=== PATIENT | female | born 1935 | race Caucasian/White ===

== ENCOUNTER 2017-03-03 00:59 | Inpatient (IN) ==
[2017-03-03] MEDS ORDERED: KETOROLAC 30 MG/1 ML VIAL IM STA (01:27)
[2017-03-03] MEDS ORDERED: ONDANSETRON ODT 4 MG TABLET PO STA (01:27)
[2017-03-03] MEDS ORDERED: ONDANSETRON ODT 4 MG TABLET PO ONE (01:32)
[2017-03-03] MEDS ORDERED: KETOROLAC 30 MG/1 ML VIAL ONE (01:33)
--- NOTE | 2017-03-03 02:04 | Emergency Department Note ---
Darryl José Brittany, am scribing for, and in the presence of, Daniel Garcia MD 01:49. Radha José Charles R, MD, personally performed the services described in this documentation, ascribed by Jackelyn Andrews in my presence, and it is both accurate and complete . Arrival - Arrival Chief Complaint: Extremity Injury Stated Complaint: left arm and back due to falling ED Nursing Triage Note: C/C left wrist and elbow pain, middle to lower back pain secondary to fall. Pt lost balance and fell over. Mode of Arrival: Wheelchair Limitations: No Limitations Source: Patient, Family Time Seen by Provider: 03/03/17 01:17 - History of Present Illness HPI Narrative: This is an 81 y/o white female, who presents to the ED with c/o upper left extremity pain. She states she fell after losing her balance. She reports her left wrist, left hand and left shoulder hurts. She states she did not hit her head. Pt reports she is not on blood thinners. She denies any hip pain but notes back pain. Pt denies any neck pain. Pt has no other complaints/pain in the ED at this time. Pt has a PMHx of HTN, skin cancer, COPD, A-fib, and HTN. Pt has had a appendectomy, cholecytectomy, tubal ligation, and right knee replacement. Pt denies a family medical Hx. Pt denies a social Hx. Onset (ago): hour(s) (1.5 hours ago) Consistency: constant Severity: moderate Allergies/Adverse Reactions: Allergies Allergy/AdvReac Type Severity Reaction Status Date / Time ampicillin Allergy Unknown/Unable Verified 08/29/15 18:31 to obtain Erythromycin Base Allergy Unknown/Unable Verified 08/29/15 18:31 to obtain Sulfa (Sulfonamide Allergy ANAPHYLAXIS Verified 03/03/17 01:08 Antibiotics) Review of System - Review of System 12 point system: reviewed and no additional remarkable complaints except as stated - Review of System Musculoskeletal: Present: arm pain (Left hand pain, Left shoulder pain Left elbow pain ), back pain. Absent: neck pain Medical,Surgical,& Family Hx - Medical History Cardio: History of: Cardiac Dysrhythmia (A-fib), Hypertension Endocrine: History of: Thyroid Disorder (hypo) Respiratory: History of: COPD Musculoskeletal: History of: Musculoskeletal Problems (L wrist fx) Other: History of: Cancer (skin) - Surgical History Cardiac Surgeries: Patient Denies: Cardiac Catheterization Abdominal Surgeries: Surgical HX of: Appendectomy, Cholecystectomy Reproductive Surgeries: Surgical HX of;: Tubal Ligation Patient denies;: Hysterectomy Orthopedic Surgeries: Surgical HX of;: Total Knee Replacement (Right) - Social History Smoking Status: Never smoker Frequency of Alcohol Use: None Type of Drug Use: None Exam Vital Signs: Vital Signs Temperature 98 F 03/03/17 01:02 Pulse Rate 60 03/03/17 01:02 Respiratory Rate 20 03/03/17 01:02 Blood Pressure 143/74 03/03/17 01:02 O2 Sat by Pulse Oximetry 98 03/03/17 01:02 - General General appearance: alert, in no apparent distress - Head Head exam: Present: atraumatic, normocephalic, normal inspection - Eye Eye exam: Present: normal appearance, PERRL, EOMI. Absent: nystagmus, miosis, mydriasis - ENT ENT exam: Present: normal exam, normal oropharynx, mucous membranes moist, TM's normal bilaterally, normal external ear exam - Neck Neck exam: Present: normal inspection, full ROM, trachea midline. Absent: tenderness, meningismus, lymphadenopathy, thyromegaly - Chest Chest inspection: Present: normal inspection, symmetric chest wall rise. Absent : tenderness, rash, abscess - Respiratory Respiratory exam: Present: normal lung sounds bilaterally. Absent: rales, respiratory distress, rhonchi, stridor, wheezes - Cardiovascular Cardiovascular exam: Present: regular rate, normal rhythm, normal heart sounds. Absent: murmur, rubs, gallop - Abdominal Exam Abdominal exam: Present: soft, normal bowel sounds. Absent: distention, tenderness, guarding, rebound, rigidity - Rectal Exam Rectal exam: Present: deferred - Extremities Exam Extremities exam: Present: tenderness (Left hand tenderness), normal capillary refill, other (Hematoma to the left wrist) - Back Exam Back exam: Present: tenderness (Lower neck pain ). Absent: muscle spasm, rashes - Neurological Exam Neurological exam: Present: alert, oriented X3, CN II-XII intact. Absent: motor sensory deficit - Psychiatric Psychiatric exam: Present: anxious. Absent: flat affect, manic - Skin Skin exam: Present: warm, dry, intact, normal color. Absent: rash, cyanosis, diaphoresis, erythema, pallor, mottled (Negaitive Nexus Sx) Course - Consultations Consultation #1: Dr. Aguilera we will see patient in consult for fractured elbow and wrist Time: 03:01 Consultation #2: Dr. Cat will admit patient Time: 03:28 Results - Diagnostic Findings Procedure: CT: image reviewed by me, report reviewed by me (T12 compression fracture), X-ray: image reviewed by me (Left supracondylar fracture, left distal radius fracture) Critical Care Time Critical Care Time: Yes Total Critical Care Time: 60 Disposition Clinical Impression: Mechanical fall, Left supracondylar humerus fracture, Fracture of left distal radius, Acute myofascial strain lumbar spine, UTI (urinary tract infection), T12 vertebral body compression fracture, Traumatic hematoma of left wrist Case discussed with: patient, patient's family Disposition: Still a Patient Condition: Stable Time of Disposition: 03:02
[2017-03-03 02:26] LABS: Barbiturates Screen,Urine Negative (Negative); Benzodiazepines Screen,Urine Negative (Negative); Cannabinoid Screen,Urine Negative (Negative); Opiate Screen,Urine Negative (Negative); Phencyclidine Screen,Urine Negative (Negative)
[2017-03-03 02:28] LABS: Apearance,Urine Slightly Hazy (Clear); Bilirubin,Urine Negative (Negative); Blood, Urine Negative (Negative); Glucose,Urine (UA) Negative (Negative); Hyaline Casts,Urine 4 /LPF (0-3); Ketones,Urine Negative (Negative); Mucus,Urine Occasional /LPF (Occasional); Nitrite,Urine Positive (Negative); Protein,Urine Negative; RBC,Urine 2 /HPF (0-4); Squamous Epithelial Cell,Urine Occasional /HPF (0-10); Urine Color Yellow (Yellow); Urine Specific Gravity 1.014 (1.001-1.035); WBC,Urine 35 /HPF (0-6)
[2017-03-03] MEDS ORDERED: LEVOFLOXACIN INJ 500 MG in PREMIX 1 EACH IV STA (02:52)
[2017-03-03] MEDS ORDERED: LEVOFLOXACIN INJ 100 ML IV ONE (02:57)
[2017-03-03] MEDS ORDERED: ONDANSETRON 4 MG/2 ML VIAL ONE (03:05)
[2017-03-03] MEDS ORDERED: HYDROmorphone 2 MG/1 ML VIAL ONE (03:05)
[2017-03-03] MEDS ORDERED: ONDANSETRON 4 MG/2 ML VIAL IV STA (03:34)
[2017-03-03] MEDS ORDERED: HYDROmorphone 2 MG/1 ML VIAL IV STA (03:34)
[2017-03-03] MEDS ORDERED: diphenhydrAMINE 50 MG/1 ML VIAL IV STA (03:41)
[2017-03-03] MEDS ORDERED: FAMOTIDINE 20 MG/2 ML VIAL IV STA (03:41)
[2017-03-03] MEDS ORDERED: methylPREDNISolone SOD SUC 125 MG/2 ML VIAL IV STA (03:41)
[2017-03-03] MEDS ORDERED: methylPREDNISolone SOD SUC 125 MG/2 ML VIAL ONE (03:42)
[2017-03-03] MEDS ORDERED: diphenhydrAMINE 50 MG/1 ML VIAL ONE (03:42)
[2017-03-03] MEDS ORDERED: FAMOTIDINE 20 MG/2 ML VIAL IV ONE ×2 (03:42→04:40)
[2017-03-03 03:56] LABS: Basophils % 0.3 % (0.0-0.8); Eosinophils # 0.1 10*3/uL (0.0-0.87); Eosinophils % 0.4 % (0.00-10.9); Hematocrit 39.6 VOL% (35.7-47.0); Hemoglobin 13.6 GM/DL (12.0-16.0); Immature Granulocytes % 0.8 %; Immature Granulocytes Absolute 0.12 #; Lymphocytes # 1.4 10*3/uL (1.4-4.0); Lymphocytes % 8.8 % (21.3-54.2); Mean Corpuscular HGB Conc 34.3 GM/DL (32-36); Mean Corpuscular Hemoglobin 33 PG (27-34); Mean Corpuscular Volume 95.9 FL (87-102); Mean Platelet Volume 10.3 FL (9.6-12.0); Monocytes # 0.8 10*3/uL (0.11-0.8); Neutrophils # 13.4 10*3/uL (1.4-7.4); Neutrophils % 84.7 % (38.7-73.9); Platelet Count 154 T/CUMM (130-400); Red Blood Count 4.13 MC/CUMM (3.8-5.5); Red Cell Distribution Width 12.9 % (9.3-17.3); White Blood Count 15.8 T/CUMM (4-12)
[2017-03-03 04:02] LABS: INR 0.9; PT Patient Result 9.9 SECS
[2017-03-03 04:03] LABS: Albumin 3.9 G/DL (3.4-5.0); Bilirubin,Total 0.7 MG/DL (0.2-1.0); Calcium 8.8 MG/DL (8.5-10.1); Osmolality,Calculated 280.7 MOS/KG (273-304); Potassium 3.7 MMOL/L (3.5-5.1); Total Protein 6.3 G/DL (6.4-8.3)
[2017-03-03] MEDS ORDERED: cefTRIAXone 1,000 MG in SODIUM CHLORIDE 0.9% 100 ML IV STA (04:15)
[2017-03-03] MEDS ORDERED: SODIUM CHLORIDE 0.9% 100 ML IV ONE (04:39)
[2017-03-03] MEDS ORDERED: cefTRIAXone 1,000 MG VIAL ONE (04:39)
[2017-03-03 04:58] LABS: Lymphocytes 6 % (20-55); Platelet Estimate Adequate; Segmented Neutrophils 92 % (50-85); Total Cells Counted 100
--- NOTE | 2017-03-03 04:59 | EKG Report ---
Stationary ECG Study [facility] ER Test Date: 03/03/2017 3:08:08 AM Pat Name: DAHLIA FARMER Department: Room: 318 Gender: F Data Communications Analyst: NATALIYA : 1935 Requested by: Daniel Dodson Order Number: [id number] Paul MD: NAVEEN GRACE Intervals [place] Rate: 70 P: 78 OK: 175 QRS: -5 QRSD: 86 T: 10 QT: 343 QTc: 364 Interpretive Statements SINUS RHYTHM INFERIOR MYOCARDIAL INFARCTION, PROBABLY OLD WITH POSTERIOR EXTENSION Electronically Signed On 03-03-17 17:07:52 CDT by NAVEEN GRACE [email or web address]
[2017-03-03] MEDS ORDERED: ACETAMINOPHEN 325 MG TABLET PO PRN (05:01)
[2017-03-03] MEDS ORDERED: LACTULOSE 20 GM/30 ML UDCUP PO PRN (05:01)
[2017-03-03] MEDS: SODIUM CHLORIDE 0.9% 1,000 ML IV SCH ×2 (05:57→21:43)
--- NOTE | 2017-03-03 06:37 | CT Report ---
CT lumbar spine wo con Indication: Lower back pain, fall Comparison: Abdominal CT dated May 02, 2014 Technique: Multiple axial tomographic images of the lumbar spine were obtained without the use of intravenous contrast. Coronal and sagittal reformatted images provided. Findings: There is buckling of the superior portion of the anterior cortex of the T12 vertebral body suspicious for acute fracture with 10% or less loss of vertebral body height. Chronic-appearing bydx-wo-opyyjcxr compression deformity of L3 with prior vertebroplasty change. Moderate levoconvex curvature of the thoracic spine. Multilevel degenerative change of the lumbar spine with multilevel loss of disc space height as well as vacuum disc phenomenon. Posterior facet arthropathy noted throughout the lumbar spine. Multilevel mild diffuse disc bulges. Moderate to severe spinal canal narrowing demonstrated at L2-3, L3-4, and L4-5. Severe neuroforaminal narrowing noted on the right at L1-2 and on the left at L2-3 and L4-5. Tuhl-wt-nqxalejd neuroforaminal narrowing noted at several other locations. Mild multilevel anterior vertebral body osteophyte formation. Diffuse osteopenia. IMPRESSION: There is buckling of the superior portion of the anterior cortex of the T12 vertebral body suspicious for acute fracture with 10% or less loss of vertebral body height. Chronic mckj-wg-hvqhqpkk compression deformity of L3 with vertebroplasty change. Multilevel degenerative change and levoconvex curvature of the lumbar spine with spinal canal and neuroforaminal narrowing as detailed above. Diffuse osteopenia and other detailed findings as above. Preliminary report was issued by [facility]. The CT exam was performed using one or more of the following dose reduction techniques: Automated exposure control, adjustment of the mA and/or kV according to patient size, or use of iterative reconstruction technique. PROCEDURE INTERPRETED AT [facility] DEPARTMENT OF RADIOLOGY Final Report Signed by: Dr German Bobby
--- NOTE | 2017-03-03 06:59 | XRay Report ---
XR wrist 3V LT Indication: Fall, pain Comparison: Left wrist x-ray dated August 29, 2015 Technique: Frontal, lateral, and oblique views of the left wrist Findings: Diffuse osteopenia. Mild buckle type fracture involving the distal radial metaphysis which appears acute. Nondisplaced acute radial styloid fracture with articular extension. Question minimal acute chip fracture of the ulnar styloid. Old mild deformity of the distal ulnar diametaphysis. Surrounding soft tissue swelling noted. IMPRESSION: As above. PROCEDURE INTERPRETED AT [facility] DEPARTMENT OF RADIOLOGY Final Report Signed by: Dr German Bobby
--- NOTE | 2017-03-03 07:12 | XRay Report ---
XR humerus LT, XR elbow 2V LT Indication: Fall, pain Comparison: None Technique: Frontal and lateral views of the left humerus. Frontal and lateral views of the left elbow. Findings: Acute, mildly displaced supracondylar fracture of the distal humerus. Wrist described in a separate dictation. IMPRESSION: As above. PROCEDURE INTERPRETED AT [facility] DEPARTMENT OF RADIOLOGY Final Report Signed by: Dr German Bobby
--- NOTE | 2017-03-03 07:14 | XRay Report ---
XR pelvis AP 1 or 2 Views Indication: Pelvic pain Comparison: Right hip x-ray dated October 15, 2010 Technique: Single frontal view of the pelvis Findings: Diffuse osteopenia. No definite acute fracture or dislocation demonstrated. Bowel obscures visualization, most significantly of the sacrum. Vertebroplasty change of L3. Surgical clips project over the pelvis. IMPRESSION: As above. PROCEDURE INTERPRETED AT [facility] DEPARTMENT OF RADIOLOGY Final Report Signed by: Dr German Bobby
--- NOTE | 2017-03-03 07:22 | XRay Report ---
Referring Physician: Daniel Garcia Exam: XR chest 1V portable Date: March 03, 2017 at 2:17 AM Reason: Shortness of breath Comparison: Bilateral rib x-rays with chest view August 29, 2015 Findings: There is borderline cardiomegaly. No focal consolidation, pneumothorax or pleural effusion is identified. No acute osseous process is seen. However, please see the recent CT of the lumbar spine for further details. Surgical clips are noted within the right upper abdomen. Impression: 1. Borderline cardiomegaly. 2. No acute pulmonary process is identified. PROCEDURE INTERPRETED AT [facility] DEPARTMENT OF RADIOLOGY Final Report Signed by: Dr. Bi Alejo
--- NOTE | 2017-03-03 07:28 | EKG Report ---
Stationary ECG Study [facility] Test Date: 03/03/2017 7:28:10 AM Pat Name: DAHLIA FARMER Department: Room: 318 Gender: F Medical Doctor Nuclear Medicine: LAINEY : 1935 Requested by: Daniel Dodson Order Number: [id number] Reading MD: NAVEEN GRACE Intervals [place] Rate: 73 P: 34 PA: 157 QRS: -12 QRSD: 90 T: -2 QT: 334 QTc: 359 Interpretive Statements SINUS RHYTHM MODERATE VOLTAGE CRITERIA FOR LVH, CONSIDER NORMAL VARIANT NONSPECIFIC T-WAVE ABNORMALITY Electronically Signed On 03-03-17 17:09:11 CDT by NAVEEN GRACE [email or web address]
--- NOTE | 2017-03-03 08:04 | Orthopedic Consult Note ---
History of Present Illness Chief complaint: Left arm pain History of present illness: Ms. Saalzar is a 81 year old female who had a fall yesterday evening. She states that she is unsteady with her gait due to some severe underlying knee arthritis and was ambulating without any assistive devices when she had a fall onto her left upper extremity. She had significant pain is brought here to the emergency department for evaluation. Upon workup she was noted to have a distal radius and a distal humerus fracture. She was splinted and admitted for further care. She is right-hand dominant She will complains of pain in the left upper extremity. Allergies Allergy/AdvReac Type Severity Reaction Status Date / Time Iodinated Contrast Media - Allergy Unknown Verified 03/03/17 07:01 Oral and ampicillin Allergy Unknown/Unable Verified 08/29/15 18:31 to obtain Erythromycin Base Allergy Unknown/Unable Verified 08/29/15 18:31 to obtain levofloxacin [From Levaquin] Allergy ITCHING Verified 03/03/17 07:01 Sulfa (Sulfonamide Allergy ANAPHYLAXIS Verified 03/03/17 01:08 Antibiotics) 12 point system: reviewed and no additional remarkable complaints except as stated Medical,Surgical,& Family Hx - Medical History Cardio: History of: Cardiac Dysrhythmia (A-fib), Hypertension Comment Only: Cardiovascular Problems (Pt states she is hypotensive) Endocrine: History of: Thyroid Disorder (hypo) Respiratory: History of: Asthma No history of: COPD, Obstructive Sleep Apnea Musculoskeletal: History of: Musculoskeletal Problems (L wrist fx) Other: History of: Cancer (skin) - Surgical History Cardiac Surgeries: Patient Denies: Cardiac Catheterization Neurologic Surgeries: Patient denies: Neurologic Surgery Abdominal Surgeries: Surgical HX of: Appendectomy, Cholecystectomy Reproductive Surgeries: Surgical HX of;: Tubal Ligation Patient denies;: Hysterectomy Orthopedic Surgeries: Surgical HX of;: Total Knee Replacement (Right) - Social History Smoking Status: Never smoker Frequency of Alcohol Use: None Type of Drug Use: None Exam - Constitutional Vitals: Period Temp Pulse Resp BP Sys/Sanches Pulse Ox Last 24 Hr 97.3 F-98.9 F 60-69 16-20 93-143/47-78 94-100 Exam: Left upper extremity: Splint is in place. She can flex and extend her fingers and thumb. She is sensate in the digits. She has brisk capillary refill. Results - Labs CBC & BMP: 03/03/17 03:29 03/03/17 03:29 - Diagnostic Findings Procedure: X-ray: image reviewed by me (Wrist x-ray showed minimally displaced fractures of the metaphyseal portion of the distal radius. Elbow and humerus radiographs show a transverse fracture through the supracondylar region of the distal humerus.) Assessment and Plan (1) Left supracondylar humerus fracture Status: Acute Assessment and plan: Discussed the distal humerus fracture with she and her daughter and her great detail. Due to the risk of displacement and subsequent decrease in elbow function, recommended open reduction internal fixation of the fracture. Risks and benefits were discussed in great detail. Risks, alternatives, and benefits to undergoing this procedure were discussed in great detail, the patient voiced understanding desire proceed. Risks discussed included, but were not limited to, bleeding, infection, damage to arteries and nerves, nonunion, malunion, need for revision surgery, as well as medical complications. She has quite anxious about the prospects of surgery and undergoing anesthesia with her pulmonary history in particular. I discussed this at length with she and her daughter. She will give surgery some consideration, will discuss this with her again after she has had time to talk with her family. Current Visit: Yes Qualifiers: Encounter type: initial encounter Fracture type: closed Qualified Code(s) : S42.412A - Displaced simple supracondylar fracture without intercondylar fracture of left humerus, initial encounter for closed fracture
--- NOTE | 2017-03-03 08:06 | Family Practice History&Phys ---
Assessment and Plan (1) Left supracondylar humerus fracture Status: Acute Assessment and plan: Patient being evaluated by orthopedics and should have surgery today. Patient has no medical problems that would prohibit surgery she should tolerate well Current Visit: Yes Qualifiers: Encounter type: initial encounter Fracture type: closed Qualified Code(s) : S42.412A - Displaced simple supracondylar fracture without intercondylar fracture of left humerus, initial encounter for closed fracture (2) Fracture of left distal radius Status: Acute Assessment and plan: Patient is being evaluated by orthopedics and will probably have surgery today. Patient should tolerate surgery well. Current Visit: Yes (3) Compression fracture at T12 Status: Acute Assessment and plan: We will consult Dr. Rosa who has seen patient for compression fractures in the past Current Visit: Yes (4) UTI (urinary tract infection) Status: Acute Assessment and plan: Have obtained cultures and started on IV Rocephin. Current Visit: Yes (5) Paroxysmal atrial fibrillation Status: Chronic Assessment and plan: Stable at present Current Visit: Yes (6) Asthma Status: Chronic Assessment and plan: Stable at present we will order respiratory treatments Current Visit: Yes (7) Chronic obstructive pulmonary disease Status: Chronic Assessment and plan: Stable at present we will order respiratory treatments Current Visit: Yes (8) Hypertension Status: Chronic Assessment and plan: Stable on present medications Current Visit: Yes History of Present Illness Chief complaint: Fracture distal humerus and radius on the right side History of present illness: Ms. Salazar is a 81 year old female Patient well-known to me who fell at home and injured her left arm and back. Patient is complaining of severe pain in her left shoulder arm and lower back on admission. Seen in emergency room and noted to have a fracture of the distal humerus with a partial distal radial radial fracture and fracture of the styloid process. These are nondisplaced. Patient is also noted to have a probable acute compression fracture T12. She has had previous compression fractures with kyphoplasty plastic in the past. Denies other areas of injury. View of history is being admitted for probable surgery and further evaluation Allergies Allergy/AdvReac Type Severity Reaction Status Date / Time Iodinated Contrast Media - Allergy Unknown Verified 03/03/17 07:01 Oral and ampicillin Allergy Unknown/Unable Verified 08/29/15 18:31 to obtain Erythromycin Base Allergy Unknown/Unable Verified 08/29/15 18:31 to obtain levofloxacin [From Levaquin] Allergy ITCHING Verified 03/03/17 07:01 Sulfa (Sulfonamide Allergy ANAPHYLAXIS Verified 03/03/17 01:08 Antibiotics) Medical,Surgical,& Family Hx - Medical History Cardio: History of: Cardiac Dysrhythmia (A-fib), Hypertension Comment Only: Cardiovascular Problems (Pt states she is hypotensive) Psychological: History of: Anxiety Disorders Endocrine: History of: Thyroid Disorder (hypo) Respiratory: History of: Asthma No history of: COPD, Obstructive Sleep Apnea Musculoskeletal: History of: Musculoskeletal Problems (L wrist fx) Other: History of: Cancer (skin) - Surgical History Cardiac Surgeries: Patient Denies: Cardiac Catheterization Neurologic Surgeries: Patient denies: Neurologic Surgery Abdominal Surgeries: Surgical HX of: Appendectomy, Cholecystectomy Reproductive Surgeries: Surgical HX of;: Tubal Ligation Patient denies;: Hysterectomy Orthopedic Surgeries: Surgical HX of;: Total Knee Replacement (Right) - Family History Family History: Reports;: Family Heart Disease, Family Hypertension - Social History Smoking Status: Never smoker Frequency of Alcohol Use: None Type of Drug Use: None Marital Status: Lives With:: Spouse Functional capacity: independent ambulation Exam - Constitutional Vitals: Period Temp Pulse Resp BP Sys/Sanches Pulse Ox Last 24 Hr 97.3 F-98.9 F 60-69 16-20 93-143/47-78 94-100 General appearance: mild distress - Head Head exam: Present: normal inspection - ENT ENT exam: Present: normal exam - Neck Neck exam: Present: normal inspection - Respiratory Respiratory exam: Present: clear to auscultation bilaterally - Cardiovascular Cardiovascular exam: Present: regular rate and rhythm - GI/Abdominal GI/Abdominal exam: Present: normal bowel sounds, soft - Extremities Exam Extremities exam: Present: other (Patient has diffuse tenderness over the lower thoracic region of spine. She is in a splint on the left arm secondary to fractures) - Back Exam Back exam: Present: muscle spasm, other (Patient has a probable acute compression fracture T12) - Neurological Exam Neurological exam: Present: alert - Psychiatric Psychiatric exam: Present: normal affect - Skin Skin exam: Present: normal color Results - Labs CBC & BMP: 03/03/17 03:29 03/03/17 03:29
[2017-03-03] MEDS ORDERED: CLINDAMYCIN INJ 900 MG in PREMIX 1 EACH IV ONE (08:30)
[2017-03-03] MEDS: PANTOPRAZOLE 40 MG VIAL IV SCH (10:17)
[2017-03-03] MEDS ORDERED: ROPIVACAINE 0.5% 30 ML VIAL ONE (10:18)
[2017-03-03] MEDS: ALBUTEROL/IPRATROPIUM 3 ML NEB RESP TX SCH ×5 (11:10→23:00)
[2017-03-03] MEDS ORDERED: fentaNYL 100 MCG/2 ML VIAL ONE ×2 (12:07→15:29)
[2017-03-03] MEDS ORDERED: MIDAZOLAM 2 MG/2 ML VIAL ONE (12:07)
--- NOTE | 2017-03-03 12:43 | Pain Management Consult Note ---
Assessment and Plan (1) Thoracic compression fracture Problem details: CT scan demonstrates T 12 compression fracture with superior endplate collapse approximately 10%. Compared to MRI of last year if this was not present. Status: Acute Assessment and plan: The patient is very pleasant 81-year-old female known to me. She has an acute compression fracture of T12 that was not present on the MRI of last year. This was likely sustained in the fall yesterday. She also has L4 fracture on her CT scan with superior endplate collapse of approximately 20%. Today she is undergone ORIF of the left arm. I discussed the possibility of kyphoplasty of T12 and even L4, and she is interested in this possibility if she still has severe pain. We will plan to see her in the clinic Wednesday or Wednesday in follow- up and discuss kyphoplasty at that time. This can be done as an outpatient and unless she cannot mobilize we will plan to see her as outpatient. Dr. Salazar will be available over the next several days if she is unable to mobilize and go home. Please note that she has had a previous L3 fracture. We will plan to have prescriptions available at our office for her to filler picker tomorrow on her way home to help manage her pain. Current Visit: Yes History of Present Illness Chief complaint: Back pain History of present illness: Ms. Salazar is a 81 year old female who fell at home and injured her left arm with fracture. She also injured her back. The back pain was doing reasonably well until the fall. She has had severe pain since the fall and it is much more uncomfortable trying to move change position but the pain is constant, throbbing aching stabbing discomfort. Home Medications Medication Instructions Recorded Confirmed Type Amlodipine Besylate [Amlodipine 5 mg PO DAILY 03/03/17 03/03/17 History Besylate] Gemfibrozil [Gemfibrozil] 600 mg PO BID 03/03/17 03/03/17 History Indapamide [Indapamide] 2.5 mg PO BID 03/03/17 03/03/17 History Levothyroxine Tab [Synthroid Tab] 125 mcg PO DAILY@0700 03/03/17 03/03/17 History Metoprolol Tartrate [Metoprolol 50 mg PO DAILY 03/03/17 03/03/17 History Tartrate] Potassium Chloride [Klor-Con M20] 20 meq PO DAILY 03/03/17 03/03/17 History Allergies Allergy/AdvReac Type Severity Reaction Status Date / Time Iodinated Contrast Media - Allergy Unknown Verified 03/03/17 07:01 Oral and ampicillin Allergy Unknown/Unable Verified 08/29/15 18:31 to obtain Erythromycin Base Allergy Unknown/Unable Verified 08/29/15 18:31 to obtain levofloxacin [From Levaquin] Allergy ITCHING Verified 03/03/17 07:01 Sulfa (Sulfonamide Allergy ANAPHYLAXIS Verified 03/03/17 01:08 Antibiotics) Medical,Surgical,& Family Hx - Medical History Cardio: History of: Cardiac Dysrhythmia (A-fib), Hypertension Comment Only: Cardiovascular Problems (Pt states she is hypotensive) Psychological: History of: Anxiety Disorders Endocrine: History of: Thyroid Disorder (hypo) Respiratory: History of: Asthma No history of: COPD, Obstructive Sleep Apnea Musculoskeletal: History of: Musculoskeletal Problems (L wrist fx) Other: History of: Cancer (skin) - Surgical History Cardiac Surgeries: Patient Denies: Cardiac Catheterization Neurologic Surgeries: Patient denies: Neurologic Surgery Abdominal Surgeries: Surgical HX of: Appendectomy, Cholecystectomy Reproductive Surgeries: Surgical HX of;: Tubal Ligation Patient denies;: Hysterectomy Orthopedic Surgeries: Surgical HX of;: Total Knee Replacement (Right) - Family History Family History: Reports;: Family Heart Disease, Family Hypertension - Social History Smoking Status: Never smoker Frequency of Alcohol Use: None Type of Drug Use: None - Constitutional Constitutional: Present: fatigue - Cardiovascular Cardiovascular: Present: dyspnea on exertion - Gastrointestinal Gastrointestinal: Present: constipation - Musculoskeletal Musculoskeletal: Present: arthralgias, back pain, joint swelling - Neurological Neurological: Present: numbness, paresthesias Exam - Constitutional Vitals: Period Temp Pulse Resp BP Sys/Sanches Pulse Ox Last 24 Hr 97.3 F-98.9 F 60-72 16-20 93-143/47-78 94-100 General appearance: mild distress, over weight - Head Head exam: Present: normocephalic - Eye Eye exam: Present: EOMI - Respiratory Respiratory exam: Present: clear to auscultation bilaterally - Cardiovascular Cardiovascular exam: Present: RRR - GI/Abdominal GI/Abdominal exam: Present: normal bowel sounds - Back Exam Back exam: Present: vertebral tenderness - Neurological Exam Neurological exam: Present: CN II-XII intact, motor sensory deficit (Feet) - Skin Skin exam: Present: normal color, warm Results - Labs CBC & BMP: 03/03/17 03:29 03/03/17 03:29
[2017-03-03] MEDS ORDERED: LIDOCAINE 100 MG/5 ML SYRINGE ONE (12:57)
[2017-03-03] MEDS ORDERED: SUCCINYLCHOLINE 200 MG/10 ML VIAL ONE (12:57)
[2017-03-03] MEDS ORDERED: PROPOFOL 200 MG/20 ML VIAL IV ONE (12:57)
[2017-03-03] MEDS ORDERED: SEVOFLURANE 1 UNIT/15 MINUTE INH ONE (15:29)
--- NOTE | 2017-03-03 15:29 | Anesthesia Post-Op ---
Anesthesia Post OP - Post Ansesthetic Evaluation Patient seen in post op: Yes Resp: within normal limits CV: within normal limits Mental: within normal limits Temp: within normal limits [id number]: within normal limits Nausea and Vomiting: within normal limits Pain: within normal limits
--- NOTE | 2017-03-03 17:11 | XRay Report ---
XR elbow 2V LT Clinical Information: ORIF LT DISTAL HUMERUS Intraoperative fluoroscopy Attending physician: Ale Total fluoroscopy time: 27 seconds Findings: Intraoperative fluoroscopic images demonstrate plate and screw hardware about the distal humerus. The fracture fragments appear in improved alignment. Images were evaluated by the attending surgeon at the time of the procedure. Impression: Intraoperative fluoroscopy as detailed above. PROCEDURE INTERPRETED AT [facility] DEPARTMENT OF RADIOLOGY Final Report Signed by: Jose Leonard
[2017-03-03] MEDS: DOCUSATE SODIUM 100 MG CAPSULE PO SCH ×2 (17:56→21:40)
[2017-03-03] MEDS: ACETAMINOPHEN 500 MG TABLET PO SCH (20:08)
[2017-03-03] MEDS: CLINDAMYCIN INJ 900 MG in PREMIX 1 EACH IV SCH (21:40)
[2017-03-04] MEDS: ACETAMINOPHEN 500 MG TABLET PO SCH ×3 (00:07→12:47)
[2017-03-04] MEDS: HYDROmorphone 2 MG/1 ML VIAL IV PRN (00:08)
[2017-03-04] MEDS: ALBUTEROL/IPRATROPIUM 3 ML NEB RESP TX SCH ×6 (03:00→23:24)
[2017-03-04] MEDS: CLINDAMYCIN INJ 900 MG in PREMIX 1 EACH IV SCH (04:14)
[2017-03-04] MEDS: cefTRIAXone 1,000 MG in SODIUM CHLORIDE 0.9% 100 ML IV SCH (05:44)
--- NOTE | 2017-03-04 07:13 | Orthopedic Progress Note ---
Assessment and Plan (1) Left supracondylar humerus fracture Status: Acute Assessment and plan: DVT prophylaxis Out of bed with therapy, use cane for ambulation Keep splint clean and dry, sling for comfort Anticipate discharge home tomorrow with home health and therapy Current Visit: Yes Qualifiers: Encounter type: initial encounter Fracture type: closed Qualified Code(s) : S42.412A - Displaced simple supracondylar fracture without intercondylar fracture of left humerus, initial encounter for closed fracture Orthopedics - Subjective Interval history: Patient complains of pain in the left elbow. She states pain medicines are not helping much today. She has been out of bed to the bathroom with nursing staff. On exam, her dressings clean and dry she has brisk capillary refill in her digits. Exam - Constitutional Vitals: Period Temp Pulse Resp BP Sys/Sanches Pulse Ox Last 24 Hr 97.2 F-99.5 F 66-95 16-18 91-136/44-90 90-98 Results - Labs CBC & BMP: 03/04/17 07:11 03/04/17 07:11 Specialty Discharge - Follow Up or Referrals Follow up with: Jeferson Aguilera MD [Physician] - 03/18/17 1:10 pm - Speciality Discharge Instructions Orthopedic Instructions: Keep splint clean and dry
[2017-03-04 07:49] LABS: Basophils % 0.1 % (0.0-0.8); Eosinophils % 0.1 % (0.00-10.9); Hematocrit 32.1 VOL% (35.7-47.0); Immature Granulocytes % 0.7 %; Immature Granulocytes Absolute 0.06 #; Lymphocytes # 1.5 10*3/uL (1.4-4.0); Mean Corpuscular Hemoglobin 33 PG (27-34); Mean Corpuscular Volume 98.2 FL (87-102); Mean Platelet Volume 10.3 FL (9.6-12.0); Monocytes # 0.8 10*3/uL (0.11-0.8); Monocytes % 9.3 % (1.7-12.7); Neutrophils # 6.6 10*3/uL (1.4-7.4); Neutrophils % 72.8 % (38.7-73.9); Platelet Count 184 T/CUMM (130-400); Red Cell Distribution Width 13.1 % (9.3-17.3)
[2017-03-04 07:52] LABS: Red Blood Count 3.27 MC/CUMM (3.8-5.5)
[2017-03-04 07:53] LABS: Hemoglobin 10.9 GM/DL (12.0-16.0)
--- NOTE | 2017-03-04 08:14 | Family Practice Progress Note ---
Family Practice - PN: Subj Interval history: Patient is stable this a.m. Doing well except for pain. She is a difficult patient for staff to manage requires almost constant attention. A.m. vitals and labs are stable, physical exam is stable except for areas of fracture. Urine culture is still pending. Hopefully will be stable for discharge in a.m. Exam (Progress Note) - Constitutional Vitals: Period Temp Pulse Resp BP Sys/Sanches Pulse Ox Last 24 Hr 97.2 F-99.5 F 66-95 16-18 91-136/44-90 90-100 Results - Labs CBC & BMP: 03/04/17 07:11 03/03/17 03:29 Assessment and Plan (1) Left supracondylar humerus fracture Status: Acute Assessment and plan: Patient being evaluated by orthopedics and should have surgery today. Patient has no medical problems that would prohibit surgery she should tolerate well Current Visit: Yes Qualifiers: Encounter type: initial encounter Fracture type: closed Qualified Code(s) : S42.412A - Displaced simple supracondylar fracture without intercondylar fracture of left humerus, initial encounter for closed fracture (2) Fracture of left distal radius Status: Acute Assessment and plan: Patient is being evaluated by orthopedics and will probably have surgery today. Patient should tolerate surgery well. Current Visit: Yes (3) Compression fracture at T12 Status: Acute Assessment and plan: We will consult Dr. Rosa who has seen patient for compression fractures in the past Current Visit: Yes (4) UTI (urinary tract infection) Status: Acute Assessment and plan: Have obtained cultures and started on IV Rocephin. Current Visit: Yes (5) Paroxysmal atrial fibrillation Status: Chronic Assessment and plan: Stable at present Current Visit: Yes (6) Asthma Status: Chronic Assessment and plan: Stable at present we will order respiratory treatments Current Visit: Yes (7) Chronic obstructive pulmonary disease Status: Chronic Assessment and plan: Stable at present we will order respiratory treatments Current Visit: Yes (8) Hypertension Status: Chronic Assessment and plan: Stable on present medications Current Visit: Yes Specialty Discharge - Follow Up or Referrals Follow up with: Jeferson Aguilera MD [Physician] - 03/18/17 1:10 pm
[2017-03-04 08:18] LABS: Albumin 3.2 G/DL (3.4-5.0); Bilirubin,Total 1.3 MG/DL (0.2-1.0); Magnesium 1.6 MG/DL (1.8-2.4); Osmolality,Calculated 283.4 MOS/KG (273-304); Total Protein 5.5 G/DL (6.4-8.3)
[2017-03-04 08:24] LABS: Free T4 (Free Thyroxine) 1.22 NG/DL (0.76-1.46); Thyroid Stimulating Hormone 2.01 uIU/ml (0.358-3.74)
[2017-03-04 08:28] LABS: Risk Ratio 2.14; VLDL CHOLESTEROL 24.6 MG/DL
[2017-03-04] MEDS: HYDROmorphone 2 MG TABLET PO PRN ×4 (09:18→22:49)
[2017-03-04] MEDS: PANTOPRAZOLE 40 MG VIAL IV SCH ×2 (09:19→09:21)
[2017-03-04] MEDS: DOCUSATE SODIUM 100 MG CAPSULE PO SCH ×2 (09:19→21:18)
[2017-03-04] MEDS: ENOXAPARIN 40 MG/0.4 ML SYRINGE SUBCUT SCH (09:19)
[2017-03-04] MEDS: FLUTICASONE/SALMETEROL 250-50 DISKUS 14 DOSE INH SCH ×2 (09:21→21:19)
--- NOTE | 2017-03-04 13:45 | XRay Report ---
History: Shortness of breath Date: 03/04/2017 Study: Chest x-ray AP portable Comparison exam: 03/03/2017 There is mild cardiomegaly. The mediastinal contour is unchanged. The pulmonary vasculature is not engorged. There is platelike subsegmental atelectasis in the right perihilar region and left lower lung. There is no jeff pneumonia or gross pleural effusion. Osseous structures are unchanged. Impression: Mild platelike subsegmental atelectasis in the lower lungs. No jeff pneumonia. Stable mild cardiomegaly PROCEDURE INTERPRETED AT [facility] DEPARTMENT OF RADIOLOGY Final Report Signed by: Dr. Bailey Aguilar
[2017-03-04] MEDS: clonazePAM 0.5 MG TABLET PO PRN ×2 (16:08→21:19)
[2017-03-05] MEDS: HYDROmorphone 2 MG TABLET PO PRN ×3 (03:11→19:42)
[2017-03-05] MEDS: clonazePAM 0.5 MG TABLET PO PRN ×3 (03:11→20:25)
[2017-03-05] MEDS: ALBUTEROL/IPRATROPIUM 3 ML NEB RESP TX SCH ×6 (04:31→23:43)
[2017-03-05] MEDS: cefTRIAXone 1,000 MG in SODIUM CHLORIDE 0.9% 100 ML IV SCH ×2 (05:31→11:12)
[2017-03-05] MEDS: DOCUSATE SODIUM 100 MG CAPSULE PO SCH ×2 (08:11→20:03)
[2017-03-05] MEDS: ONDANSETRON 4 MG/2 ML VIAL IV PRN (08:12)
[2017-03-05] MEDS: PANTOPRAZOLE 40 MG VIAL IV SCH (08:12)
--- NOTE | 2017-03-05 08:12 | Orthopedic Progress Note ---
Assessment and Plan (1) Left supracondylar humerus fracture Status: Acute Assessment and plan: Patient is currently on oral Dilaudid as ordered by Dr. Rosa. By report, this is the pain medication that he would like her to go home on. Will contact his office to see if this can be increased or changed to help with pain control Continue antibiotics for UTI Okay to discharge patient home once her pain is controlled. She is currently ambulating safely with therapy. Follow-up 2 weeks Current Visit: Yes Qualifiers: Encounter type: initial encounter Fracture type: closed Qualified Code(s) : S42.412A - Displaced simple supracondylar fracture without intercondylar fracture of left humerus, initial encounter for closed fracture Orthopedics - Subjective Interval history: Patient is complaining of pain this morning. She is in tears. She states her pain medication is not helping. On exam her splint clean and dry she is neurovascular intact in the hand. Urine culture is growing gram-positive cocci Exam - Constitutional Vitals: Period Temp Pulse Resp BP Sys/Sanches Pulse Ox Last 24 Hr 97.0 F-98.5 F 65-86 16-20 120-151/66-85 92-98 Results - Labs CBC & BMP: 03/04/17 07:11 03/04/17 07:11 Specialty Discharge - Follow Up or Referrals Follow up with: Jeferson Aguilera MD [Physician] - 03/18/17 1:10 pm
[2017-03-05] MEDS: FLUTICASONE/SALMETEROL 250-50 DISKUS 14 DOSE INH SCH (10:06)
[2017-03-05] MEDS: ENOXAPARIN 40 MG/0.4 ML SYRINGE SUBCUT SCH (11:12)
[2017-03-05] MEDS: HYDROmorphone 2 MG/1 ML VIAL IV PRN (11:12)
[2017-03-05] MEDS ORDERED: MAGNESIUM SULF RIDER 2 GM in PREMIX 1 EACH IV ONE (13:48)
[2017-03-05] MEDS: POTASSIUM CHLORIDE RIDER 10 MEQ in PREMIX 1 EACH IV PRN ×5 (14:19→21:49)
[2017-03-05] MEDS: POTASSIUM CHLORIDE 20 MEQ TABLET PO SCH (14:52)
--- NOTE | 2017-03-05 14:54 | Family Practice Progress Note ---
Family Practice - PN: Subj Interval history: Patient complaining of increased pain today. She actually appears oversedated. Staff states that she has set up in the chair briefly and did ambulate with physical therapy. Patient states the pain is such that she is not able to care for herself at home today. She has had some runs of atrial fib today but I did not realize that she was not restarted on her home medications. She normally is on atenolol and I have restarted those medicines now. She also was noted to have a decreased as stated. This a.m. and I am replacing those now. Long discussion with patient and advised that he needs to increase activity and plan to discharge in a.m.. She will need to make arrangements for someone to help her at home if needed. Appearance-general alert and oriented HEENT-no acute changes Heart-irregular rate and rhythm no murmurs Lungs-clear to auscultation, no dyspnea Abdomen-soft and nontender Extremities-patient is an supplemental left arm. Has pain over the upper back on the left side which actually is causing most of her pain. Normal pulses Neurological exam-stable to present PLAN-we will correct potassium and magnesium as stated. Have encouraged patient to stay up in chair and ambulate in room with assist. Will restart home medications and monitor. If patient stable plan to discharge a.m.. Exam (Progress Note) - Constitutional Vitals: Period Temp Pulse Resp BP Sys/Sanches Pulse Ox Last 24 Hr 96.7 F-98.5 F 65-125 16-20 120-151/56-85 92-98 Results - Labs CBC & BMP: 03/04/17 07:11 03/04/17 07:11 Assessment and Plan (1) Left supracondylar humerus fracture Status: Acute Assessment and plan: Patient being evaluated by orthopedics and should have surgery today. Patient has no medical problems that would prohibit surgery she should tolerate well Current Visit: Yes Qualifiers: Encounter type: initial encounter Fracture type: closed Qualified Code(s) : S42.412A - Displaced simple supracondylar fracture without intercondylar fracture of left humerus, initial encounter for closed fracture (2) Fracture of left distal radius Status: Acute Assessment and plan: Patient is being evaluated by orthopedics and will probably have surgery today. Patient should tolerate surgery well. Current Visit: Yes (3) Compression fracture at T12 Status: Acute Assessment and plan: We will consult Dr. Rosa who has seen patient for compression fractures in the past Current Visit: Yes (4) UTI (urinary tract infection) Status: Acute Assessment and plan: Have obtained cultures and started on IV Rocephin. Current Visit: Yes (5) Paroxysmal atrial fibrillation Status: Chronic Assessment and plan: Stable at present Current Visit: Yes (6) Asthma Status: Chronic Assessment and plan: Stable at present we will order respiratory treatments Current Visit: Yes (7) Chronic obstructive pulmonary disease Status: Chronic Assessment and plan: Stable at present we will order respiratory treatments Current Visit: Yes (8) Hypertension Status: Chronic Assessment and plan: Stable on present medications Current Visit: Yes Specialty Discharge - Follow Up or Referrals Follow up with: Raghu Rosa MD [Physician] - (MRI of lower back at the [facility] on 03/09/2017 at 3:30pm Total pain clinic 03/11/2017 at 1230 for kyphoplasty. Npo 6 hours prior to procedure and must bring a class a regional drivers. ) Jeferson Aguilera MD [Physician] - 03/18/17 1:10 pm
[2017-03-05] MEDS: METOPROLOL TARTRATE 50 MG TABLET PO SCH (16:09)
[2017-03-05] MEDS ORDERED: VANCOMYCIN INJ 1,250 MG in SODIUM CHLORIDE 0.9% 250 ML IV SCH (17:30)
[2017-03-05] MEDS: GEMFIBROZIL 600 MG TABLET PO SCH (20:25)
[2017-03-05] MEDS: INDAPAMIDE 2.5 MG TABLET PO SCH (20:25)
[2017-03-06] MEDS: FLUTICASONE/SALMETEROL 250-50 DISKUS 14 DOSE INH SCH ×2 (01:30→09:38)
[2017-03-06] MEDS: ALBUTEROL/IPRATROPIUM 3 ML NEB RESP TX SCH ×4 (02:44→15:13)
[2017-03-06] MEDS: HYDROmorphone 2 MG TABLET PO PRN ×3 (03:25→11:53)
[2017-03-06] MEDS: clonazePAM 0.5 MG TABLET PO PRN ×3 (03:25→13:47)
[2017-03-06 05:12] LABS: Basophils % 0.5 % (0.0-0.8); Eosinophils # 0.2 10*3/uL (0.0-0.87); Eosinophils % 2.3 % (0.00-10.9); Hematocrit 31.4 VOL% (35.7-47.0); Hemoglobin 10.5 GM/DL (12.0-16.0); Immature Granulocytes % 0.5 %; Immature Granulocytes Absolute 0.03 #; Lymphocytes # 1.3 10*3/uL (1.4-4.0); Lymphocytes % 20.1 % (21.3-54.2); Mean Corpuscular HGB Conc 33.4 GM/DL (32-36); Mean Corpuscular Hemoglobin 33 PG (27-34); Mean Corpuscular Volume 98.7 FL (87-102); Mean Platelet Volume 10.4 FL (9.6-12.0); Monocytes # 0.6 10*3/uL (0.11-0.8); Monocytes % 9.7 % (1.7-12.7); Neutrophils # 4.4 10*3/uL (1.4-7.4); Neutrophils % 66.9 % (38.7-73.9); Platelet Count 174 T/CUMM (130-400); Red Blood Count 3.18 MC/CUMM (3.8-5.5); Red Cell Distribution Width 13.2 % (9.3-17.3); White Blood Count 6.5 T/CUMM (4-12)
[2017-03-06] MEDS ORDERED: LEVOTHYROXINE 125 MCG TABLET PO SCH (07:00)
[2017-03-06] MEDS: ONDANSETRON 4 MG/2 ML VIAL IV PRN (07:18)
[2017-03-06 08:19] LABS: Osmolality,Calculated 276.7 MOS/KG (273-304); Potassium 3.2 MMOL/L (3.5-5.1)
[2017-03-06] MEDS: ENOXAPARIN 40 MG/0.4 ML SYRINGE SUBCUT SCH (09:35)
[2017-03-06] MEDS: PANTOPRAZOLE 40 MG VIAL IV SCH (09:35)
[2017-03-06] MEDS: DOCUSATE SODIUM 100 MG CAPSULE PO SCH (09:37)
[2017-03-06] MEDS: POTASSIUM CHLORIDE 20 MEQ TABLET PO SCH (09:37)
[2017-03-06] MEDS: INDAPAMIDE 2.5 MG TABLET PO SCH (09:37)
[2017-03-06] MEDS: GEMFIBROZIL 600 MG TABLET PO SCH (09:37)
[2017-03-06] MEDS: METOPROLOL TARTRATE 50 MG TABLET PO SCH (09:37)
[2017-03-06] MEDS: POTASSIUM CHLORIDE RIDER 10 MEQ in PREMIX 1 EACH IV PRN (09:38)
--- NOTE | 2017-03-06 14:53 | Discharge Summary ---
Hospital Course - Hospital Course Hospital Course: Ms. Salazar is a 81 year old female Patient well-known to me who fell at home and injured her left arm and back. Patient is complaining of severe pain in her left shoulder arm and lower back on admission. Seen in emergency room and noted to have a fracture of the distal humerus with a partial distal radial radial fracture and fracture of the styloid process. These are nondisplaced. Patient is also noted to have a probable acute compression fracture T12. She has had previous compression fractures with kyphoplasty plastic in the past. Denies other areas of injury. View of history is being admitted for probable surgery and further evaluation HOSPITAL COURSE -patient admitted to hospital lab and x-ray studies obtained. Patient seen in consultation by Dr. Aguilera. He was taken to surgery where she had repair of a displaced supracondylar fracture left humerus. She was also seen in consultation by Dr. Rosa. Kincaid to have a compression fracture of T12. Patient has had a stable postoperative course. She has had a moderate amount of pain but is otherwise done well. Dr. Rosa has arranged for patient to have an MRI of the thoracic spine on Wednesday after discharge. He also has made arrangements for her pain management as well as follow-up care through his clinic next week. Patient stable at time of discharge. Will discharge to home care and have patient keep the scheduled appointments arranged with Dr. Aguilera and Dr. Rosa. I will see patient as needed we will otherwise have her keep her regularly scheduled medical appointment. Have her call or return to emergency room if condition worsen or new problems develop. Diagnosis - Discharge Diagnosis (1) Left supracondylar humerus fracture Status: Acute (2) Fracture of left distal radius Status: Acute (3) Compression fracture at T12 Status: Acute (4) UTI (urinary tract infection) Status: Acute (5) Paroxysmal atrial fibrillation Status: Chronic (6) Asthma Status: Chronic (7) Chronic obstructive pulmonary disease Status: Chronic (8) Hypertension Status: Chronic Specialty Discharge - Follow Up or Referrals Follow up with: Raghu Rosa MD [Physician] - (MRI of lower back at the [facility] on 03/09/2017 at 3:30pm Total pain clinic 03/11/2017 at 1230 for kyphoplasty. Npo 6 hours prior to procedure and must bring a yard driver. ) Jeferson Aguilera MD [Physician] - 03/18/17 1:10 pm Discharge Plan - Discharge Data Disposition: Disch To Home/Self Care Condition at Discharge: Stable Discharge Diet: advance to your usual diet Activity: resume usual activities as tolerated, no lifting Weight Bearing at Discharge: full weight bearing Contact your physician if you experience:: fever over 101, Shortness of breath - Discharge Medications New Doxycycline Hyclate Cap [Vibramycin Cap] 100 mg PO BID #20 capsule Aspirin Tab 325 mg PO DAILY #30 tablet Continue Potassium Chloride [Klor-Con M20] 20 meq PO DAILY Metoprolol Tartrate 50 mg PO DAILY Indapamide 2.5 mg PO BID Amlodipine Besylate 5 mg PO DAILY Gemfibrozil 600 mg PO BID Levothyroxine Tab [Synthroid Tab] 125 mcg PO DAILY@0700 - Follow Up or Referral Follow Up: Raghu Rosa MD [Physician] - (MRI of lower back at the [facility] on 03/09/2017 at 3:30pm Total pain clinic 03/11/2017 at 1230 for kyphoplasty. Npo 6 hours prior to procedure and must bring a yard driver. ) Jeferson Aguilera MD [Physician] - 03/18/17 1:10 pm - Forms/Instructions Instructions: Urinary Tract Infection in Women (DC), Open Reduction and Internal Fixation of an Arm Fracture (DC) Additional Discharge Instructions: Patient is to picking belt operator her pain medications at Mr. [facility] #1. These medications have already been called in by Dr. Rosa. Exam - Constitutional Vitals: Period Temp Pulse Resp BP Sys/Sanches Pulse Ox Last 24 Hr 97.7 F-99.6 F 81-122 17-21 99-119/48-71 91-98 General appearance: no acute distress - Head Head exam: Present: normal inspection - ENT ENT exam: Present: normal exam - Neck Neck exam: Present: normal inspection - Respiratory Respiratory exam: Present: clear to auscultation bilaterally - Cardiovascular Cardiovascular exam: Present: regular rate and rhythm - GI/Abdominal GI/Abdominal exam: Present: normal bowel sounds, soft - Extremities Exam Extremities exam: Present: other (Patient has splint left arm secondary to fractures) - Back Exam Back exam: Present: normal inspection - Neurological Exam Neurological exam: Present: alert - Psychiatric Psychiatric exam: Present: normal affect - Skin Skin exam: Present: normal color Discharge Results Procedures and tests throughout hospitalization: Pending Orders 03/03/17 08:23 Blood Culture Stat Labs on day of discharge: Labs from last 24 hours 03/06/17 03/06/17 03/06/17 08:34 04:57 04:57 WBC 6.5 RBC 3.18 L Hgb 10.5 L Hct 31.4 L MCV 98.7 MCH 33 MCHC 33.4 RDW 13.2 Plt Count 174 MPV 10.4 Neut % (Auto) 66.9 Lymph % (Auto) 20.1 L [place] % (Auto) 9.7 Eos % (Auto) 2.3 Baso % (Auto) 0.5 Neut # (Auto) 4.4 Lymph # (Auto) 1.3 L [place] # (Auto) 0.6 Eos # (Auto) 0.2 Baso # (Auto) 0.0 Immature Gran % 0.5 Nucleated RBC % 0.0 Immature Gran # 0.03 Nucleated RBCs # 0.00 Sodium 138 Potassium 3.2 L 3.2 L Chloride 103 Carbon Dioxide 23 Anion Gap 15.2 H BUN 14 Creatinine 0.80 GFR Calculation 77 BUN/Creatinine Ratio 17.00 Glucose 117 H Calculated Osmolality 276.7 Calcium 8.0 L Magnesium 2.0 Preliminary micro results at discharge 03/03/17 08:23 Blood Culture - Preliminary Blood No growth at 3 days 03/03/17 08:23 Blood Culture - Preliminary Blood No growth at 3 days DS: Provider Date of admission: 03/03/17 03:31 Primary care physician: Derrick Cat DO Attending physician on admission: Derrick Cat DO Consults: 03/03/17 05:01 Consult to Case Mgmt/Social Srvs [CONS] Routine Reason for Case Mgmt/Social Srvs: Discharge Planning Consult to Occupational Therapy [CONS] Routine Reason for Occupational Therapy: Weakness Consult to Physical Therapy [CONS] Routine Reason for Physical Therapy: Weakness Consult Comment: kristin HOUSE Consult to Physician [CONS] Routine Comment: Left elbow fracture, left wrist fracture Consulting Provider: Jeferson Aguilera Consulting Provider Notified: Yes When should Consulting Provider be notified: In am Person Notified: kiera called Date Notified: 03/03/17 Time Notified: 08:02 Consult to Physician [CONS] Routine Comment: Pain control, T12 fracture Consulting Provider: Raghu Rosa Consulting Provider Notified: Yes When should Consulting Provider be notified: In am Person Notified: Sarah called Date Notified: 03/03/17 Time Notified: 08:09 03/04/17 13:13 Consult to Case Mgmt/Social Srvs [CONS] Routine Reason for Case Mgmt/Social Srvs: Home Health Rehab Consult Comment: Set up home rehab and SN to see patient after D/C home Discharging clinician: Derrick Cat DO
[2017-03-06] MEDS ORDERED: DOXYCYCLINE HYCLATE 100 MG CAPSULE PO SCH (15:00)
[2017-03-06 16:39] VITALS: BP 110/55
[2017-03-07] MEDS ORDERED: ASPIRIN 325 MG TABLET PO SCH (09:00)
== END 2017-03-06 18:33 | disposition home health service (06) | DRG 493 ==
LOC: N.ED 00:59 → N.EDINP 03:31 → N.3E 04:48
PROVIDERS: ADMIT Family Medicine; ATTEND Family Medicine